=== PATIENT | female | born 1945 | race Caucasian/White ===

== ENCOUNTER → 2019-09-24 12:20 | Outpatient (CLI) | payer MEDICARE, SELFPAY ==
--- NOTE | ~2019-09-24 | MM_ITS ---
EXAMINATION: MM screening johanna BI w hever HISTORY: Screening TECHNIQUE: Craniocaudal and mediolateral oblique 3-D tomosynthesis images were obtained and synthetic 2-D images were generated. CAD analysis was submitted and interpreted. COMPARISON: Comparison to multiple prior studies sequentially, with oldest reviewed study dated 03/11. BREAST PARENCHYMAL COMPOSITION: Breast composed of scattered areas of fibroglandular density. FINDINGS: Bilateral breast asymmetries are stable. There is no evidence of suspicious mass, calcifica tion, or architectural distortion to suggest malignancy in either breast. There has been no suspiciou s interval change. IMPRESSION: 1. No mammographic evidence of malignancy. 2. Recommend routine screening mammography in one year. BI-RADS Category 2: Benign finding(s). Reviewed, dictated and finalized at location A.
--- NOTE | ~2019-09-24 | DEXA_ITS ---
Bone Density Report Name: Solange Curran Age: 74 Sex: Female Ethnicity: White Date of : 1945 Indication: postmenopausal; screening for osteoporosis; parental hip fracture; height loss; Referring Provider: DOLORES SALAZAR Study: Bone densitometry was performed. Exam Date: September 24, 2019 Accession number: [id number] Bone Density: Region BMD T-score Z-score Classification AP Spine (L1-L4) 0.997 -0.5 2.0 Normal Femoral Neck (Left) 0.638 -1.9 0.2 Osteopenia Total Hip (Left) 0.890 -0.4 1.4 Normal Femoral Neck (Right) 0.658 -1.7 0.4 Osteopenia Total Hip (Right) 0.875 -0.6 1.3 Normal Total Hip Mean 0.883 -0.5 1.4 Normal World Health Organization criteria for BMD impression classify patients as: Normal (T-score at or above -1.0), Osteopenia (T-score between -1.0 and -2.5), or Osteoporosis (T-score at or below -2.5). 10-year Fracture Risk(1): Major Osteoporotic Fracture 21% Hip Fracture 12% Reported Risk Factors: [place] (), Neck BMD=0.638, BMI=23.0, parental fracture (1) FRAX(R) Version 3.08. Fracture probability calculated for an untreated patient. Fracture probability may be lower if the patient has received treatment. Previous Exams: Region Exam Age BMD T-score BMD Change BMD Change Date g/cm2 vs Baseline vs Previous AP Spine(L1-L4) 09/24/2019 74 0.997 -0.5 0.116* -0.013 03/15/2016 70 1.011 -0.3 0.129* 0.078* 03/05/2014 68 0.933 -1.0 0.051* 0.024* 02/20/2012 66 0.909 -1.3 0.027* 0.018 02/06/2010 64 0.891 -1.4 0.009 0.009 09/10/2007 62 0.882 -1.5 Total Hip(Left) 09/24/2019 74 0.890 -0.4 -0.021 -0.018 03/15/2016 70 0.909 -0.3 -0.003 0.010 03/05/2014 68 0.899 -0.4 -0.013 0.000 02/20/2012 66 0.898 -0.4 -0.013 0.007 02/06/2010 64 0.892 -0.4 -0.020 -0.020 09/10/2007 62 0.911 -0.3 Total Hip(Right) 09/24/2019 74 0.875 -0.6 -0.028* -0.030* 03/15/2016 70 0.904 -0.3 0.002 0.026 03/05/2014 68 0.878 -0.5 -0.024 -0.017 02/20/2012 66 0.895 -0.4 -0.007 -0.007 02/06/2010 64 0.901 -0.3 -0.001 -0.001 09/10/2007 62 0.902 -0.3 *Denotes significance at 95% confidence level, LSC for AP Spine = 0.022 g/cm2, LSC for Total Hip = 0.027 g/cm2 Clinical Information Provided by Patient:
== END ==
PROVIDERS: Visit Provider Obstetrics & Gynecology Gynecology
DX: Z12.31 Encounter for screening mammogram for malignant neoplasm of breast (principal); Z78.0 Asymptomatic menopausal state; M85.89 Other specified disorders of bone density and structure, multiple sites
CPT/HCPCS: 77063; 77067; 77080

== ENCOUNTER → 2020-10-20 12:42 | Outpatient (CLI) | payer MEDICARE, SELFPAY ==
--- NOTE | ~2020-10-20 | MM_ITS ---
EXAMINATION: MM screening johanna BI w hever HISTORY: Screening TECHNIQUE: Craniocaudal and mediolateral oblique 3-D tomosynthesis images were obtained and synthetic 2-D images were generated. CAD analysis was submitted and interpreted. COMPARISON: Comparison to multiple prior studies sequentially, with oldest reviewed study dated 03/11. BREAST PARENCHYMAL COMPOSITION: There are scattered areas of fibroglandular density. FINDINGS: There is no evidence of suspicious mass, calcification, or architectural distortion to sugg est malignancy in either breast. There has been no suspicious interval change. IMPRESSION: 1. No mammographic evidence of malignancy. 2. Recommend routine screening mammography in one year. BI-RADS Category 1: Negative Reviewed, dictated and finalized at location A.
== END ==
PROVIDERS: PCP Family Medicine Adolescent Medicine; Visit Provider Obstetrics & Gynecology Gynecology
DX: Z12.31 Encounter for screening mammogram for malignant neoplasm of breast (principal)
CPT/HCPCS: 77063; 77067